=== PATIENT | male | born 2000 ===

== ENCOUNTER 2021-02-07 14:28 | Emergency (ER) | payer OTHER ==
[~2021-02-07] VITALS: Ht 180.3 cm; Wt 97.7 kg
[2021-02-07 14:39] VITALS: TEMP 98.3
[2021-02-07 16:03] VITALS: BP 147/69; PULSE 71
== END 2021-02-07 16:03 | disposition home or self-care (01) ==
LOC: COL.ER 14:28
DX: S50.01XA Contusion of right elbow, initial encounter (principal); Z88.1 Allergy status to other antibiotic agents; W18.39XA Other fall on same level, initial encounter; Y93.67 Activity, basketball